=== PATIENT | female | born 1950 | race Caucasian/White ===

== ENCOUNTER 2019-05-07 12:44 | Inpatient (IN) | payer MEDICARE, MEDICAID ==
[~2019-05-07] VITALS: Ht 152.4 cm; Wt 89.8 kg
[2019-05-07] MEDS ORDERED: ALLOPURINOL300 MG PO (14:43)
[2019-05-07] MEDS ORDERED: ANUSOL HC30 GM R (14:44)
[2019-05-07] MEDS ORDERED: ELIQUIS5 M1 PO (14:45)
[2019-05-07] MEDS ORDERED: AZELASTINE137 MCG/0. NAS (14:46)
[2019-05-07] MEDS ORDERED: DEPAKOTE500 MG PO (14:47)
[2019-05-07] MEDS ORDERED: CLARITIN10 MG PO (14:50)
[2019-05-07] MEDS ORDERED: DEPAKOTE250 MG PO (14:51)
[2019-05-07] MEDS ORDERED: ZETIA10 MG PO (14:53)
[2019-05-07] MEDS ORDERED: DILTIAZEM 24HR300 MG PO (14:53)
[2019-05-07] MEDS ORDERED: FENOFIBRATE145 M1 PO (14:54)
[2019-05-07] MEDS ORDERED: FLONASE ALLERG9.9 ML NAS (14:54)
[2019-05-07] MEDS ORDERED: IMODIUM A-D2 M2 PO (15:03)
[2019-05-07] MEDS ORDERED: ATROVENT HFA12.9 GM INH (15:04)
[2019-05-07] MEDS ORDERED: IRON325 M1 PO (15:05)
[2019-05-07] MEDS ORDERED: KLONOPIN1 M1 PO (15:06)
[2019-05-07] MEDS ORDERED: SYNTHROID137 MCG PO (15:07)
[2019-05-07] MEDS ORDERED: LISINOPRIL20 MG PO (15:08)
[2019-05-07] MEDS ORDERED: MONTELUKAST SOD10 MG PO (15:08)
[2019-05-07] MEDS ORDERED: OMEPRAZOLE40 MG PO (15:09)
[2019-05-07] MEDS ORDERED: POTASSIUM CHLO10 ME5 PO (15:11)
[2019-05-07] MEDS ORDERED: PROZAC20 MG PO (15:12)
[2019-05-07] MEDS ORDERED: RISPERDAL0.5 MG PO (15:13)
[2019-05-07] MEDS ORDERED: ROBITUSSIN5 ML PO (15:14)
[2019-05-07] MEDS ORDERED: REQUIP0.5 MG PO (15:15)
[2019-05-07] MEDS ORDERED: ONCE DAILY1 EACH PO (15:16)
[2019-05-07] MEDS ORDERED: TRAZODONE50 MG PO (15:17)
[2019-05-07] MEDS ORDERED: VITAMIN D35000 UNIT PO (15:18)
[2019-05-07] MEDS ORDERED: TYLENOL325 M1 PO (15:20)
[2019-05-07] MEDS ORDERED: XYLOCAINE 1% PO (15:22)
[2019-05-07] MEDS ORDERED: ZEASORB POWDER71 GM T (15:23)
[2019-05-07] MEDS ORDERED: BREO ELLIPTA 21 EACH INH (15:48)
--- NOTE | 2019-05-07 16:45 | NUR ---
ELISE MARIO a 68 year old F admitted via stretcher from [facility] as a voluntary admission. Arrived on unit at 1645. ALLERGIES: KEFLEX, DOXYCYCLINE. Vital signs are: [id number] 127/68. 97% ROOM AIR The client signed the following forms with stated understanding: Authorization For The Release of Medical Information, Clothing List, Consent to Voluntary Admission and Hospitalization, Consent and Release Forms/Receipt of Rights, Acknowledgement of Advance Directive Information, Behavioral Health Consent Form, and Informed Consent of Medications. Admitted under the services of MELVA Ramirez MD. A search was conducted and hazardous articles were removed. Client was oriented to the unit. AB GORDON
[2019-05-07 17:01] VITALS: BP 127/68
--- NOTE | 2019-05-07 17:04 | NUR ---
NOTIFIED OF CONSULT FOR MEDICAL MANAGEMENT.
[2019-05-07 17:13] LABS: BILIRUBIN NEGATIVE (NEGATIVE); BLOOD TRACE-INTACT (NEGATIVE); CLARITY CLOUDY (CLEAR); COLOR YELLOW (YELLOW); GLUCOSE NEGATIVE (NEGATIVE); KETONE TRACE (NEGATIVE); LEUKO ESTERASE 3+ (NEGATIVE); NITRITE POSITIVE (NEGATIVE); PH 7.5 (5.0-9.0); SPECIFIC GRAVITY 1.015 (1.005-1.030)
[2019-05-07 17:29] LABS: BACTERIA 2+; EPITHELIAL CELLS 0-2; RBC 0-2 rbc/hpf (0-2); WBC 51-100 wbc/hpf (0-5)
--- NOTE | 2019-05-07 18:23 | NUR ---
PT IS ALERT AND ORIENTED X4. MEMORY APPEARS TO BE INTACT. MOOD APPEARS DEPRESSED WITH ANXIOUS OVERTONES. PT REPORTS FEELING OVERWHELMINGLY DEPRESSED AND ANXIOUS AND "NOT WELL MENTALLY" LATELY SINCE HER SON HAS BEEN INCARCERATED D/T A "DOUBLE MURDER". AFFECT IS BROAD RANGE. PT STATES "SOMETIMES I GET LOUD". PT DENIES SI/HI, INTENT OR PLAN. PT ADMITS TO 2 PREVIOUS SUICIDE ATTEMPTS IN THE BUT STATES "I DON'T WANT TO BE NOW. I JUST COULD BE MORE SATISFIED WITH MY LIFE IF I COULD GET MY SON LESS TIME IN [facility]". PT DENIES HALLUCINATIONS, NO RESPONSE TO INTERNAL STIMULI NOTED. PT APPEARS PARANOID REGARDING NURSING FACILITY. NO DISTRESS NOTED. PT CALM AND COOPERATIVE WITH ADMISSION ASSESSMENTS. SKIN INTACT, BRUISE NOTED TO LEFT HIP. PT REPORTS MULTIPLE FALLS AT [facility]. GAIT STEADY AT THIS TIME. PT SCORES FALL RISK, PT EDUCATION PROVIDED REGARDING FALL RISK PRECAUTIONS. FALLING STAR PROTOCOL INITIATED. PT VERBALIZED UNDERSTANDING AND AGREEMENT. ORIENTED TO ROOM AND CALL MADSEN.
[2019-05-07 19:43] LABS: BASO % 0.4 % (0.0-1.0); EOS % 0.4 % (1.0-4.0); HEMATOCRIT 37.5 % (37.0-47.0); HEMOGLOBIN 12.1 g/dl (12.0-16.0); LYMPH # 1.1 10*3/uL (1.3-4.4); MEAN CELL VOLUME 84.1 fl (81.0-99.0); MEAN CORPUSCULAR HGB 27.1 pg (27.0-31.0); MEAN CORPUSCULAR HGB CONC 32.3 g/dl (33.0-37.0); MEAN PLATELET VOLUME 10.1 fl (9.6-12.3); MONO # 0.9 10*3/uL (0.1-1.0); MONO % 9.1 % (3.0-9.0); NEUT # 7.9 10*3/uL (2.3-7.9); NEUT % 76.3 % (47.0-73.0); PLATELET COUNT AUTOMATED 174 10*3/uL (130-400); RED BLOOD COUNT 4.46 10*6/uL (4.10-5.10); RED CELL DISTRI WIDTH 16.2 % (0-14.5); WHITE BLOOD COUNT 10.3 10*3/uL (4.8-10.8)
[2019-05-07 20:00] LABS: ALBUMIN 2.8 gm/dl (3.1-4.5); CREATININE 1.23 mg/dL (0.55-1.02); POTASSIUM 4.3 mmol/L (3.5-5.1); TOTAL PROTEIN 6.9 gm/dL (6.4-8.2)
[2019-05-07 20:08] LABS: THYROID STIM HORMONE (HS) 2.54 uIU/ml (0.358-4.75)
[2019-05-07 20:12] VITALS: BP 132/62
--- NOTE | 2019-05-08 02:38 | NUR ---
24 HR chart check completed.
--- NOTE | 2019-05-08 02:45 | NUR ---
Called and notified Dr. Kay regarding Urine results. No new orders were received at this time.
--- NOTE | 2019-05-08 05:26 | NUR ---
Patient slept approx. 5 hours throughout shift with multiple awakenings. Q 15 minute safety checks continued and maintained.
[2019-05-08 07:23] LABS: CHLORIDE 104 mmol/L (98-107); SODIUM 137 mmol/L (136-145)
[2019-05-08 07:33] LABS: ALBUMIN 2.7 gm/dl (3.1-4.5); ALKALINE PHOSPHATASE 49 U/L (45-117); BUN 19 mg/dl (7-24); CHOLESTEROL 138 mg/dL (<200); CREATININE 0.77 mg/dL (0.55-1.02); HDL CHOLESTEROL 46 mg/dl (40-60); LDL CHOLESTEROL 78 mg/dL (9-159); SGOT/AST 10 IU/L (3-35); SGPT/ALT 11 U/L (12-78); TOTAL PROTEIN 6.6 gm/dL (6.4-8.2); TRIGLYCERIDES 70 mg/dl (<150); VALPROIC ACID (DEPAKENE) 33.9 ug/ml (50-100); VLDL CHOLESTEROL 14 mg/dL (6-40)
--- NOTE | 2019-05-08 07:58 | NUR ---
DR. HENNING ON FLOOR TO ASSESS PATIENT. UPDATE PROVIDED. INFORMED OF IV FLUIDS COMPLETED. STATED THAT THE IV COULD BE REMOVED.
[2019-05-08 08:00] VITALS: BP 120/69
--- NOTE | 2019-05-08 08:30 | NUR ---
Treatment Plan meeting with Dr. Ramires, RN, AT, SW and Linux Devops Engineer. Plan for discharge next week. Pt. came to [facility] from [facility]. Will reach out to facility to discuss discharge Planning.
--- NOTE | 2019-05-08 09:02 | NUR ---
PHYSICAL THERAPY Nursing screen received and chart reviewed. PT orders received. Thank you Fernanda Desai, SPT Iraida Ward,PT,DPT.
--- NOTE | 2019-05-08 10:17 | NUR ---
#22 GAUGE IV TO LEFT HAND AND DRESSING, DISCONTINUED AT THIS TIME. CATHETER TIP INTACT. PRESSURE DRESSING APPLIED. PATIENT TOLERATED VERY WELL.
--- NOTE | 2019-05-08 11:10 | NUR ---
Nursing screen received and occupational therapy referral received. Thank you. Marcy Haynes OTR/L
--- NOTE | 2019-05-08 12:30 | NUR ---
Spoke with Pratibha Cordova with [facility]. Pt. is LTC at facility and will return at discharge. Clinical Updates faxed to facility.
--- NOTE | 2019-05-08 12:46 | NUR ---
Shift chart check completed.
--- NOTE | 2019-05-08 13:52 | NUR ---
Patient not available for occupational therapy evaluation as she was in group session. Marcy Haynes OTR/l
--- NOTE | 2019-05-08 13:53 | NUR ---
PHYSICAL THERAPY Physical therapy evaluation attempted. Patient in group activities at this time. Will try PT evaluation again at a later time/date. Thank you. Iraida Ward,PT,DPT.
--- NOTE | 2019-05-08 15:35 | NUR ---
PM GROUP PT ATTENDED AFTERNOON GROUP THERAPY AND PARTICIPATED BY SOCIALIZING AND LISTENING TO THE MUSIC. PT WAS TALKATIVE BUT EXHIBITED NO SIGNS OF ANXIETY OR PARANOIA.
--- NOTE | 2019-05-08 15:39 | NUR ---
P- DEPRESSED MOOD. I- 1:1 INTERACTION WITH EMOTIONAL SUPPORT AND VENTILATION OF FEELINGS PROVIDED. PROVIDE MEDICATIONS ON TIME WITH EDUCATION ON EACH. ASSESS MOOD, ORIENTATION, HALLUCINATIONS, DELUSIONS, SI/HI OR PAIN. ENCOURAGE TO ATTEND/PARTICIPATE IN GROUP THERAPIES. R- ALERT AND ORIENTED X4. DENIES HALLUCINATIONS, DELUSIONS, SI/HI OR PAIN. NO S/S OF INTERACTING WITH INTERNAL STIMULI. NO DELUSIONAL THOUGHT PROCESS NOTED. NO S/S OF DISTRESS NOTED. RESPS EVEN AND UNLABORED ON ROOM AIR. GAIT STEADY WHILE AMBULATING. MEDICATION COMPLIANT. INTERACTIVE WITH PEERS AND STAFF. ATTEND/PARTICIPATE IN GROUP THERAPY. PATIENT DESCRIBES MOOD DEPRESSED. PATIENT EXPRESSED DURING 1:1 INTERACTION THAT HER SON WAS PUT IN LONG TERM AND SHE BELIEVES THAT IT IS ALL FOR THE WRONG REASONS, SHE IS NOT HAPPY WITH THE SHELTER THAT SHE IS IN, AND THE HEALTH ISSUES THAT SHE HAS. PATIENT STATED THAT ALL THESE FACTORS HAS MADE HER DEPRESSED. DENIES ANY THOUGHTS OF SELF HARM OR SI. P- 1:1 INTERACTION WITH EMOTIONAL SUPPORT AND VENTILATION OF FEELINGS PROVIDED WHEN NECESSARY. ENCOURAGE TO ATTEND/PARTICIPATE IN GROUP THERAPIES. PROVIDE MEDICATIONS ON TIME WITH EDUCATION ON EACH. ASSESS MOOD, ORIENTATION, SI/HI, HALLUCINATIONS, DELUSIONS OR PAIN EVERY SHIFT. FALLING STAR PROGRAM IN PLACE. Q15 MINUTE CHECKS MAINTAINED FOR SAFETY.
[2019-05-08 20:00] VITALS: BP 133/88
--- NOTE | 2019-05-08 22:19 | NUR ---
Patient alert and oriented x4. Gait steady. Denies SI/HI. No signs of any hallucinations noted at this time. Patient compliant with medications without any difficulty. Provided 1:1 for emotional support. Plan to continue to encourage medication compliance and to continue to provide 1:1 for emotional support. Q 15 minute safety checks continued and maintained. See [facility] flowsheet for further documentation.
--- NOTE | 2019-05-09 00:29 | NUR ---
24 HR chart check completed.
--- NOTE | 2019-05-09 05:29 | NUR ---
Patient slept approx. 4 hours throughout shift with multiple awakenings. Q 15 minute safety checks continued and maintained.
--- NOTE | 2019-05-09 08:02 | NUR ---
PT AWAKE AND ALERT. RESPS EASY AND EVEN ON ROOM AIR. FEEDING SELF BREAKFAST IN DINING ROOM WITH PEERS. NO DISTRESS NOTED. KAYLA MACHINE HOSTLER ON UNIT TO SEE PT AT THIS TIME FOR . UPDATE GIVEN.
[2019-05-09 08:14] VITALS: BP 115/71
--- NOTE | 2019-05-09 09:30 | NUR ---
ON UNIT TO SEE PT AT THIS TIME.
--- NOTE | 2019-05-09 11:55 | NUR ---
AM/EXERCISE/BINGO PT ATTENDED AND PARTICIPATED IN ALL ACTIVITY'S. PT STATES "I DONT PLAY GAMES BUT I WILL TO PASS SOME TIME" PT DID NOT EXPRESS ANY ANXIETY OR PARANOIA AT THIS TIME. PT WILL CONTINUE TO BE ENCOURAGED TO ATTEND AND PARTICIPATE IN FUTURE GROUP SESSIONS TO BEST OF ABILITY. THIS STAFF WILL COMPLETE PT ACTIVITY ASSESSMENT THIS AFTERNOON.
--- NOTE | 2019-05-09 15:16 | NUR ---
P- MOOD APPEARS STABLE, APPROPRIATE AFFECT. PT DENIES FEELING SAD, DEPRESSED OR ANXIOUS. PT REPORTS SHE IS ALREADY FEELING BETTER THAN WHEN ADMITTED TO [facility], HOWEVER, PT STATES "I DON'T KNOW HOW LONG THESE GOOD FEELINGS ARE GOING TO LAST SINCE I'M SURE I'LL HAVE TO GO BACK TO THAT HELL HOLE OF A PENITENTIARY, BUT I HAVE PEOPLE WORKING ON THAT FOR ME AND I'M THANKFUL FOR THAT". I- ORIENTATION, MOOD AND BEHAVIOR ASSESSED. ASSESSED PT FOR SI/HI, INTENT OR PLAN. ASSESSED PT FOR S/S HALLUCINATIONS, PARANOIA AND/OR DELUSIONS. MEDICATIONS ADMINISTERED PER PHYSICIAN'S ORDERS. MED EDUCATION PROVIDED. ASSISTANCE WITH ADL CARE PROVIDED NEEDED. ENCOURAGED PT TO ATTEND AND PARTICIPATE IN ROSAD[employer] MILIEU GROUPS AND ACTIVITIES. R- PT IS ALERT AND ORIENTED X4. MEMORY APPEARS TO BE INTACT. RESPS EASY AND EVEN ON ROOM AIR. MOOD APPEARS STABLE WITH APPROPRIATE AFFECT. PT DENIES FEELING SAD OR DEPRESSED, STATES SHE IS FEELING MUCH BETTER THAN WHEN ORIGINALLY ADMITTED, HOWEVER, PT STATES "I DON'T KNOW HOW LONG THESE GOOD FEELINGS ARE GOING TO LAST SINCE I'M SURE I'LL HAVE TO GO BACK TO THAT HELL HOLE OF A PENITENTIARY, BUT I HAVE PEOPLE WORKING ON THAT FOR ME AND I'M THANKFUL FOR THAT". PT DENIES SI/HI, INTENT OR PLAN. PT STATES "I TRIED THAT YEARS AGO, BUT I'LL NEVER DO IT AGAIN. I DON'T WANT TO BE ". PT DENIES HALLUCINATIONS, NO RESPONSE TO INTERNAL STIMULI NOTED. PT IS MEDICATION COMPLIANT WITHOUT DIFFICULTY. RECEPTIVE TO MED EDUCATION, ABLE TO VOICE UNDERSTANDING OF MEDICATIONS AND THEIR INTENDED USES. INTERACTS APPROPRIATELY WITH STAFF AND PEERS. ATTENDS AND PARTICIPATES IN GROUPS AND ACTIVITIES. INDEPENDENT WITH ADL CARE, SHOWERED THIS AFTERNOON. FEEDS SELF, DISPLAYS GOOD APPETITE WITH ADEQUATE FLUID INTAKE. NO DISTRESS NOTED. P- PLAN TO CONTINUE CURRENT TREATMENT; CONTINUE TO MONITOR MOOD AND BEHAVIORS. PROVIDE APPROPRIATE REORIENTATION, REDIRECTION AND 1:1 NEEDED. CONTINUE TO ENCOURAGE MEDICATION COMPLIANCE WELL GROUP ATTENDANCE AND PARTICIPATION.
--- NOTE | 2019-05-09 16:00 | NUR ---
PM/REMINISCE PT ATTENDED AND PARTICIPATED DURING GROUP. PT PLEASANT AND ON TASK WITH NO PARANOIA OR ANXIETY EXPRESSED. PT WILL CONTINUE TO ATTEND AND PARTICIPATE IN FUTURE GROUP SESSIONS.
--- NOTE | 2019-05-09 16:28 | NUR ---
SHIFT CHART CHECK COMPLETED.
[2019-05-09 19:57] VITALS: BP 120/72
--- NOTE | 2019-05-09 22:43 | NUR ---
PT REQUESTING AND RECEIVED AT THIS TIME TYLENOL. PT C/O GENERALIZED PAIN RATING A 5. TYLENOL 650MG PO GIVEN PER PRN ORDER AT THIS TIME. WILL MONITOR FOR EFFECTIVENESS.
--- NOTE | 2019-05-09 23:07 | NUR ---
NO ADVERSE MOODS OR BEHAVIORS NOTED THIS SHIFT. ALERT AND ORIENTED X4. PT STATES "I AM DOING SURPRISINGLY REALLY GOOD TODAY". MEDICATION COMPLIANT WITH EDUCATION PROVIDED ON EACH. PT STATED "IT IS TIME I REALLY LEARN THESE MEDICATIONS AGAIN, THEY KEEP CHANGING THEM AND IT IS HARD TO KEEP UP". PT PLEASANT AND INTERACTING WITH PEERS/STAFF. ATE HS SNACK. DENIES HALLUCINATIONS, SI/HI OR PAIN. NO S/S OF INTERACTING WITH INTERNAL STIMULI. NO DELUSIONAL THOUGHT PROCESS NOTED. NO S/S OF DISTRESS NOTED. RESPS EVEN AND UNLABORED ON ROOM AIR. GAIT STEADY WHILE AMBULATING. ABLE TO MAKE NEEDS KNOWN. FALLING STAR PROGRAM IN PLACE. Q15 MINUTE CHECKS MAINTAINED FOR SAFETY.
--- NOTE | 2019-05-09 23:46 | NUR ---
PRN TYLENOL EFFECTIVE. PT LAYING IN BED WITH EYES CLOSED, RESPS EVEN AND UNLABORED ON ROOM AIR. NO FURTHER COMPLAINTS AT THIS TIME.
--- NOTE | 2019-05-09 23:46 | NUR ---
24 HR chart check completed.
--- NOTE | 2019-05-10 05:55 | NUR ---
PATIENT MONITORED ON Q15 MINUTE SAFETY CHECKS THROUGHOUT THE NIGHT. PT NOTED TO HAVE SLEPT APPROXIMATELY 6 HOURS UNINTERRUPTED.
[2019-05-10 07:52] VITALS: BP 137/72
--- NOTE | 2019-05-10 08:01 | NUR ---
PT AWAKE AND ALERT. RESPS EASY AND EVEN ON ROOM AIR. FEEDING SELF BREAKFAST IN DINING ROOM WITH PEERS AT THIS TIME. NO DISTRESS NOTED. KAYLA MOBILE UI/UX DESIGNER ON UNIT TO SEE PT AT THIS TIME, UPDATE GIVEN.
--- NOTE | 2019-05-10 09:29 | NUR ---
PRN TYLENOL 650MG PO GIVEN AT THIS TIME PER PT REQUEST FOR C/O PAIN TO NECK, BILATERAL SHOULDERS AND MID BACK. PT RATES PAIN AN 8/10 ON PAIN SCALE. WILL MONITOR FOR EFFECTIVENESS OF MEDICATION INTERVENTION.
--- NOTE | 2019-05-10 10:30 | NUR ---
PT STATES TYLENOL IS INEFFECTIVE FOR PAIN RELIEF. PT STATES "I USED TO BE ON STRONG PAIN KILLERS BUT THEY WON'T GIVE ME THEM ANYMORE BECAUSE THEY'RE CRACKING DOWN ON THEM. I DON'T NEED SOMETHING STRONG BUT TYLENOL NEVER WORKS". ON UNIT AND AWARE OF PT COMPLAINTS.
--- NOTE | 2019-05-10 10:30 | NUR ---
ON UNIT TO SEE PT AT THIS TIME. MADE AWARE PT C/O PAIN TO NECK, SHOULDERS AND BACK UNRELIEVED BY ADMINISTRATION OF PRN TYLENOL.
--- NOTE | 2019-05-10 18:33 | NUR ---
P- INTRUSIVE INTO CARE OF PEERS. PREOCCUPIED AT TIMES WITH TALKING ABOUT GETTING OUT OF THE [facility] AND INTO AN APARTMENT, PT STATES "THEY'VE TOLD ME I'LL PROBABLY GET DECLINED FOR AN APARTMENT THOUGH BECAUSE OF MY PSYCH ISSUES". I- ORIENTATION, MOOD AND BEHAVIORS ASSESSED. ASSESSED PT FOR SI/HI, INTENT OR PLAN. ASSESSED PT FOR S/S HALLUCINATIONS, PARANOIA AND/OR DELUSIONS. MEDICATIONS ADMINISTERED PER PHYSICIAN'S ORDERS. ASSISTANCE WITH ADL CARE PROVIDED NEEDED. ENCOURAGED PT TO ATTEND AND PARTICIPATE IN ROS[facility] MILIE[facility] GROUPS AND ACTIVITIES. R- PT IS ALERT AND ORIENTED X4. MEMORY APPEARS TO BE INTACT. RESPS EASY AND EVEN ON ROOM AIR. MOOD APPEARS STABLE WITH APPROPRIATE AFFECT. SPEECH IS WNL AND COHERENT, ABLE TO MAKE NEEDS KNOWN WITHOUT DIFFICULTY. PT DENIES SI/HI, INTENT OR PLAN. PT DENIES HALLUCINATIONS, NO RESPONSE TO INTERNAL STIMULI NOTED. NO PARANOIA OR DELUSIONS NOTED. PT PREOCCUPIED AT TIMES WITH TALKING ABOUT GETTING OUT OF THE [facility] AND INTO AN APARTMENT. INTRUSIVE AT TIMES INTO THE CARE OF PEERS REQUIRING REDIRECTION. PT IS MEDICATION COMPLIANT WITHOUT DIFFICULTY. EXPRESSES UNDERSTANDING OF MEDICATIONS. NO AGGRESSIVE BEHAVIORS DISPLAYED. NO DISTRESS NOTED. P- PLAN TO CONTINUE CURRENT TREATMENT, CONTINUE TO MONITOR MOOD AND BEHAVIORS, PROVIDE APPROPRIATE REORIENTATION, REDIRECTION AND 1:1 NEEDED. CONTINUE TO ENCOURAGE MEDICATION COMPLIANCE WELL GROUP ATTENDANCE AND PARTICIPATION.
--- NOTE | 2019-05-10 18:56 | NUR ---
SHIFT CHART CHECK COMPLETED.
[2019-05-10 19:54] VITALS: BP 120/62
--- NOTE | 2019-05-10 21:00 | NUR ---
PT PLEASANT COOPERATIVE THIS EVENING, REVIEWED MEDICATIONS WITH EDUCATION ON PURPOSE FOR EACH ONE. PT ACKNOWLEDGED EACH WITH UNDERSTANDING OF WHAT THEY ARE FOR. PT EXPRESSED CONCERN DUE TO RISPERDAL CAUSED EXCESSIVE WEIGHT GAIN IN THE PAST, STATING "I AM BIG ENOUGH IT IS I DON'T NEED ANY HELP" REPORTED IT WAS 60 LBS IN 1 MONTH. AT THIS TIME INFORMED PT THAT DOCTOR WOULD BE INFORMED OF HER CONCERNS IN AM. NO SI/HI OR DELUSIONS NOTED ON ASSESSMENTS, CONTINUE TO MONITOR 15 MIN CHECKS
--- NOTE | 2019-05-11 06:36 | NUR ---
TYLENOL GIVEN FOR C/O 06/11 HEADACHE
[2019-05-11 07:53] VITALS: BP 113/68
--- NOTE | 2019-05-11 08:30 | NUR ---
Treatment Plan meeting with Dr. Ramires, RN, AT, SW and Front Edger. Plan for discharge Saturday. Pt. will return to the [facility].
--- NOTE | 2019-05-11 10:42 | NUR ---
Spoke with Pratibha Cordova from the [facility]. Advised of Plans to discharge Saturday. Clinical Updates faxed to facility.
--- NOTE | 2019-05-11 10:46 | NUR ---
DR HENNING ON THE UNIT TO ASSESS PT. UPDATE PROVIDED.
--- NOTE | 2019-05-11 12:04 | NUR ---
AM GROUP/EXERCISE AND BRAIN GAMES PT WAS PRESENT FOR MORNING GROUP THERAPY AND PARTICIPATED IN ALL ACTIVITIES. PT EXPRESSED NO PARANOIA NOR EXHIBITED ANY ANXIETY WHILE IN GROUP
--- NOTE | 2019-05-11 14:10 | NUR ---
PHYSICAL THERAPY Physical therapy evaluation attempted. Patient in group session at this time. Will try PT evaluation again at a later time/date. Thank you. Iraida Ward,PT,DPT.
--- NOTE | 2019-05-11 14:10 | NUR ---
Patient not available for Occupational Therapy evaluation as she is in group therapy session. Marcy Haynes OTR/L
--- NOTE | 2019-05-11 15:37 | NUR ---
PM GROUP/LEISURE INTERESTS PT ATTENDED AFTERNOON GROUP THERAPY AND PARTICIPATED BY PLAYING SOLITAIRE AND WORKING ON A [employer]. PT EXPRESSED NO PARANOID IDEATIONS WHILE IN GROUP.
--- NOTE | 2019-05-11 15:56 | NUR ---
Left a message for GLASS CHECKER at [facility] requesting a return call to discuss the status of pt's request to relocate to the [facility]. Await return call.
--- NOTE | 2019-05-11 16:01 | NUR ---
PT REQUEST AND RECEIVED AT THIS TIME PRN TYLENOL PO. PT C/O LEFT ANKLE PAIN. SKIN INTACT, NO ERYTHMIA/DISCOLORATION OR EDEMA TO SITE. PT WALKING ON ANKLE WITH NO DIFFICULTY. TYLENOL PO GIVEN AT THIS TIME PER PRN ORDERS. WILL CONTINUE TO MONITOR FOR EFFECTIVENESS.
--- NOTE | 2019-05-11 17:01 | NUR ---
PRN TYLENOL EFFECTIVE. NO FURTHER VOICED COMPLAINTS AT THIS TIME.
--- NOTE | 2019-05-11 17:15 | NUR ---
PT CURRENTLY EATING DINNER WITH PEERS. MOOD PLEASANT AND INTERACTIVE WITH PEERS/STAFF. ALERT AND ORIENTED X3. DENIES HALLUCINATIONS. NO S/S OF INTERACTING WITH INTERNAL STIMULI. NO DELUSIONAL THOUGHT PROCESS NOTED. NO S/S OF DISTRESS NOTED. RESPS EVEN AND UNLABORED ON ROOM AIR. MAKES NEEDS KNOWN. GAIT STEADY WHILE AMBULATING. CONTINENT OF BOWEL AND BALDDER. FALLING STAR PROGRAM IN PLACE. Q15 MINUTE CHECKS MAINTAINED FOR SAFETY.
--- NOTE | 2019-05-11 17:48 | NUR ---
Shift chart check completed.
--- NOTE | 2019-05-11 18:48 | NUR ---
DR. LOPEZ NOTIFIED OF PT COMPLAINING LEFT ANKLE PAIN AND PT STATING THAT THE TYLENOL IS NO LONGER EFFECTIVE. PT LIMPING, NO DISCOLORATION/ERYTHMIA OR EDEMA NOTED TO SITE. DR. LOPEZ STATED THAT WE WILL ORDER AN XRAY.
--- NOTE | 2019-05-11 19:10 | NUR ---
RADIOLOGY ON FLOOR WITH PORTABLE XRAY. PT TOLERATED WELL.
[2019-05-11 19:45] VITALS: BP 116/61
--- NOTE | 2019-05-11 21:42 | NUR ---
NO ADVERSE MOODS OR BEHAVIORS NOTED THIS SHIFT. ALERT AND ORIENTED X3. MOOD PLEASANT. INTERACTIVE WITH PEERS. ATE HS SNACK. DENIES HALLUCINATIONS, SI/HI OR PAIN. NO S/S OF INTERACTING WITH INTERNAL STIMULI. NO DELUSIONAL THOUGHT PROCESS NOTED. NO S/S OF DISTRESS NOTED. RESPS EVEN AND UNLABORED ON ROOM AIR. MEDICATION COMPLIANT WITH EDUCATION PROVIDED ON EACH. GAIT STEADY WHILE AMBULATING. FALLING STAR PROGRAM IN PLACE. Q15 MINUTE CHECKS MAINTAINED FOR SAFETY.
--- NOTE | 2019-05-11 21:52 | NUR ---
24 HR chart check completed.
--- NOTE | 2019-05-12 00:51 | NUR ---
DR. MCKEON NOTIFIED OF XRAY RESULTS ARE IN FOR REVIEW. NO NEW ORDERS AT THIS TIME.
--- NOTE | 2019-05-12 03:35 | NUR ---
PT C/O NECK PAIN RATING 6 OUT OF 10. NO DISCOLORATION/ERYTMIA OR EDEMA NOTED TO AREA. PT SITTING IN BED WITH HEAD ALL THE WAY UP, SUGGESTED PUTTING THE HEAD OF THE BED DOWN SOME DUE TO NECK BEING IN A FORWARD TILT POSITION; OFFERED A DIFFERENT PILLOW; PT REFUSED ALL NONPHARMALOGICAL SUGGESTIONS. PT REQUESTING AND RECEIVED AT THIS TIME PRN PO TYLENOL. WILL CONTINUE TO MONITOR FOR EFFECTIVENESS.
--- NOTE | 2019-05-12 04:30 | NUR ---
PATIENT RESTING WITH EYES CLOSED. PRN TYLENOL EFFECTIVE, NO FURTHER COMPLAINTS AT THIS TIME. NO S/S OF DISTRESS NOTED. RESPS EVEN AND UNLABORED ON ROOM AIR.
--- NOTE | 2019-05-12 05:35 | NUR ---
PATIENT MONITORED ON Q15 MINUTE SAFETY CHECKS THROUGHOUT THE NIGHT. PATIENT NOTED TO HAVE SLEPT APPROXIMATELY 3.5 HOURS.
--- NOTE | 2019-05-12 08:30 | NUR ---
Treatment Plan meeting with Dr. Ramires, RN, AT, SW and Pegger. Plan for discharge Sat/. Pt. will return to the [facility].
[2019-05-12 08:31] VITALS: BP 131/79
--- NOTE | 2019-05-12 10:35 | NUR ---
DR. HENNING ON UNIT TO ASSESS PT, UPDATE PROVIDED.
--- NOTE | 2019-05-12 11:53 | NUR ---
AM GROUP PT ATTENDED AND PARTICIPATED IN ALL GROUP ACTIVITIES. PT WAS TALKATIVE BUT ON TASK. PT EXPRESSED NO PARANOIA OR ANXIETY WHILE IN GROUP
--- NOTE | 2019-05-12 14:16 | NUR ---
Met with pt this AM. Pt was pleasant and inquiring about discharge plan. Informed pt that this video games storywriter had not yet heard from the workers' compensation commissioner at the [facility] in regards to referrals to NFs in [facility]. Later in the AM, received a call from blanche Almaguer at the [facility]. Rosina reported that she has made 6 referrals to [place] NFs. All have declined pt.
--- NOTE | 2019-05-12 14:40 | NUR ---
PHYSICAL THERAPY Patient in group session at this time. Will attempt PT evaluation at a later date. Thank you. Iraida Ward,PT,DPT.
--- NOTE | 2019-05-12 14:40 | NUR ---
Patient not available for Occupational Therapy as she is in group session Marcy Haynes OTR/Tra
--- NOTE | 2019-05-12 14:42 | NUR ---
P: PT MOOD IS ANXIOUS AT TIMES. PT PREOCCUPIED WITH MEDICATIONS. I: PROVIDED MED EDUCATION, PROVIDED EMOTIONAL SUPPORT AND 1:1 FOR PT TO VOICE FEELINGS, ENCOURAGED GROUP PARTICIPATION AND OFFERED DIVERSIONAL ACTIVITES. R: PT CONTINUES WITH INTERMITTENT ANXIETY, ABLE TO BE REDIRECTED. PT MED COMPLIANT WITHOUT DIFFICULTY, MED EDUCATION PROVIDED. PT ALERT TO PERSON, PLACE AND TIME. NO HALLUCINATIONS OR DELUSIONS NOTED. PT DENIES ANY SUICIDAL THOUGHTS. PT AMBULATORY THROUGHTOUT UNIT, GAIT STEADY. PT CONTINENT OF BOWEL AND BLADDER. P: MONITOR PT BEHAVIORS ON Q15 MIN SAFETY CHECKS, ENCOURAGE MED COMPLIANCE AND PROVIDE MED EDUCATION, ENCOURAGE GROUP PARTICIPATION AND SOCIALIZATION, PROVIDE EMOTIONAL SUPPORT AND 1:1 FOR PT TO VOICE FEELINGS
--- NOTE | 2019-05-12 15:30 | NUR ---
PM GROUP/ART AND MUSIC PT ATTENDED AFTERNOON GROUP THERAPY AND PARTICIPATED BY WORKING ON A [employer]. PT WAS TALKATIVE BUT ON TASK. PT EXHIBITED NO ANXIETY NOR EXPRESSED ANY PARANOID IDEATIONS DURING GROUP
[2019-05-12 19:20] VITALS: BP 140/77
--- NOTE | 2019-05-12 20:38 | NUR ---
EVENING/RELAXTION/REMINISCE PT ATTENDED AN DPARTICIPATED DURING GROUP. PT PLEASANT AND ON TASK WITH NO ANXIETY OR PARANOIA EXPRESSED. PT WILL CONTINUE TO ATTEND AN DPARTICIPATE IN FUTURE RGOUP SESSIONS.
--- NOTE | 2019-05-12 21:00 | NUR ---
INTERACTIVE WITH PEERS. LAUGHING AND JOKING. REVIEWED PM MEDICATIONS. STATES SHE HAD A GOOD DAY.NO PARANOIA NOTED
--- NOTE | 2019-05-13 00:47 | NUR ---
APPEARS TYLENOL EFFECTIVE FOR NECK AND HEAD PAIN
--- NOTE | 2019-05-13 04:14 | NUR ---
24 HR chart check completed.
--- NOTE | 2019-05-13 05:54 | NUR ---
SLEPT WELL PAST 2300PM. MOVED SELF IN BED
[2019-05-13 08:14] VITALS: BP 112/65
--- NOTE | 2019-05-13 08:30 | NUR ---
Treatment Plan meeting with Dr. Ramires, RN, AT, and Network Specialist. Plan for discharge . Pt. will return to [facility].
--- NOTE | 2019-05-13 09:08 | NUR ---
PHYSICAL THERAPY Physical therapy evaluation completed. Patient independent in dining area and hallways with ambulation and transfers. No PT needs at this time. Return to [facility] at discharge. Thank you, Fernanda Desai, RYDER Ward,PT,DPT
--- NOTE | 2019-05-13 09:08 | NUR ---
Occupational Therapy evaluation completed on 3 with full eval to follow. PRecautions include use of cane prior to admission, 3N unit precautions, low complexity level 19000 via chart review, testing and evaluation. Recommend no further OT at this time and return to [facility] upon d/c. Thank you. Marcy Haynes OTR/L
--- NOTE | 2019-05-13 11:47 | NUR ---
AM GROUP PT DID NOT ATTEND GROUP UNTIL LATE AND STATED, "I HAD SUCH A HEADACHE, I WENT TO SLEEP, BUT I REALLY CAN'T DO ANYTHING BECAUSE MY NECK REALLY HURTS" PT SAT AT THE BACK OF THE ROOM IN A COMFY CHAIR. PT EXPRESSED NO ANXIETY OR PARANOIA WHILE IN GROUP
--- NOTE | 2019-05-13 15:24 | NUR ---
NO ADVERSE MOODS OR BEHAVIORS NOTED. PT ALERT TO PERSON, PLACE AND TIME. PT MED COMPLIANT WITHOUT DIFFICULTY. PT MED COMPLIANT WITHOUT DIFFICULTY, MED EDUCATION PROVIDED. PT CALM, MOOD IS STABLE. PT INTERACTIVE WITH STAFF AND PEERS. NO HALLUCINATIONS OR DELUSIONS NOTED. PT DENIES ANY SUICIDAL THOUGHTS. PT AMBULATORY THROUGHOUT UNIT, GAIT STEADY. PT CONTINENT OF BOWEL AND BLADDER, EPISODES OF INCONTINENCE NOTED, CARE PROVIDED NEEDED. PLAN IS TO MONITOR PT BEHAVIORS ON Q15 MIN SAFETY CHECKS, ENCOURAGE MED COMPLIANCE AND PROVIDE MED EDUCATION, PROVIDE EMOTIONAL SUPPORT AND 1:1 FOR PT TO VOICE FEELINGS.
--- NOTE | 2019-05-13 15:34 | NUR ---
PM GROUP/SOCIALIZING PT ATTENDED AND PARTICIPATED IN AFTERNOON GROUP THERAPY. PT WAS TALKATIVE AND EXHIBITED NO ANXIETY NOR EXPRESSED ANY PARANOID IDEATIONS. PT IS LOOKING FORWARD TO BEING DISCHARGED FROM THE UNIT TOMORROW
--- NOTE | 2019-05-13 18:29 | NUR ---
PT C/O NECK PAIN, MEDICATED WITH TYLENOL 650MG PO PRN PER ORDERS. WILL CONTINUE TO MONITOR.
[2019-05-13 19:25] VITALS: BP 130/58
--- NOTE | 2019-05-13 21:29 | NUR ---
INTERACTIVE WITH PEERS. NO C/O OTHER THAN BACK PAIN. WITH ENCOURAGEMENT SHE ALLOWED ME TO APPLY ARTHRITIC CREAM. GAIT STEADY. REVIEWED ALL MEDICATIONS.
--- NOTE | 2019-05-13 22:20 | NUR ---
STATES ARTHRITIC CREAM TOO HOT. HAD MILIEU WASH OFF.
--- NOTE | 2019-05-14 00:58 | NUR ---
24 HR chart check completed.
--- NOTE | 2019-05-14 05:39 | NUR ---
TYLENOL GIVEN FOR C/O HEADACHE 06/11
--- NOTE | 2019-05-14 05:57 | NUR ---
SLEPT APPROX 5 1/
--- NOTE | 2019-05-14 08:03 | NUR ---
DR. LOPEZ NOTIFIED OF PATIENT BEING DISCHARGE, TO INFORM .
[2019-05-14 08:11] VITALS: BP 129/71
--- NOTE | 2019-05-14 08:30 | NUR ---
Treatment Plan meeting was held this a.m. with Dr. Ramires, RN, AT, SW and Lab Support Service Tech. Plan for discharge today with return to the [facility]. Transportation arranged with [facility] to transport with picker / packer time around 12:00 p.m. Discharge Paperwork Faxed to Facility.
[2019-05-14] MEDS ORDERED: CLONAZEPAM1 MG PO (09:34)
[2019-05-14] MEDS ORDERED: RISPERIDONE1 MG PO (09:35)
[2019-05-14] MEDS ORDERED: ARTHRITIS PAIN57 GM T (09:35)
[2019-05-14] MEDS ORDERED: DIVALPROEX SOD500 MG PO (09:35)
--- NOTE | 2019-05-14 11:45 | NUR ---
AM GROUP/EXERCISE PT ATTENDED MORNING GROUP THERAPY AND PARTICIPATED IN THE EXERCISES. PT EXPRESSED NO DELUSIONS OR ANXIETY WHILE IN GROUP. PT IS SET TO BE DISCHARGED FROM THE UNIT THIS AFTERNOON
--- NOTE | 2019-05-14 12:33 | NUR ---
REVIEWED DISCHARGE INSTRUCTIONS WITH PATIENT AND SIGNED. NURSE TO NURSE REPORT GIVEN TO FLOWER ALBARADO KILBOURNE.
--- NOTE | 2019-05-14 12:36 | NUR ---
PATIENT IS ALERT AND ORIENT TO PERSON,PLACE,TIME AND SITUATION; ABLE TO VOICE NEEDS. MOOD IS STABLE. DENIES ANY HALLUCINATIONS, DELUSIONS, HHI/SI OR PAIN. MEDICAITON COMPLAINT WITH EDUCATION PROVIDED. Q 15 MINUTE SAFETY CHECKS. INDEPENDENT WITH ACTIVITIES OF DAILY LIVING, CONTINENT OF BOWEL AND BLADDER. SET UP FOR MEALS, INTAKES ARE GOOD WITH ADEQUATE FLUIDS. DENIES ANY PARANOID THOUGHTS. CONTINUE TO MONITOR FOR HALLUCINATIONS/DELUSION; PROVIDE ONE ON ONE, REDIRECTION AND REORIENTATION NEEDED.
--- NOTE | 2019-05-14 13:02 | NUR ---
[facility] PRESENT, PATIENT ASSISTED TO [facility]. ALL BELONGING AND DISCHARGE INSTRUCTIONS SENT WITH PATIENT.
--- NOTE | 2019-05-14 14:06 | NUR ---
Patient discharged to [facility] today. Follow-up will be with Dr Ramires, visiting psychiatrist. While at [facility], pt's mood and behaviors improved. Pt was future-oriented as she voices a want to relocate in the [place] area to be closer to her son Gaudencio. Pt was not voicing paranoid delusions or hallucinations. Pt was appropriate with staff and peers.
== END 2019-05-14 13:02 | DRG 883 ==
LOC: 3N 12:44
PROVIDERS: ADMIT Psychiatry & Neurology Psychiatry
DX: F63.81 Intermittent explosive disorder (principal); N17.0 Acute kidney failure with tubular necrosis; E43 Unspecified severe protein-calorie malnutrition; N30.01 Acute cystitis with hematuria; G45.9 Transient cerebral ischemic attack, unspecified; F31.5 Bipolar disorder, current episode depressed, severe, with psychotic features; I48.91 Unspecified atrial fibrillation; J44.9 Chronic obstructive pulmonary disease, unspecified; J30.2 Other seasonal allergic rhinitis; E78.5 Hyperlipidemia, unspecified; I10 Essential (primary) hypertension; M1A.9XX0 Chronic gout, unspecified, without tophus (tophi); F41.9 Anxiety disorder, unspecified; E55.9 Vitamin D deficiency, unspecified; R73.9 Hyperglycemia, unspecified; Z96.653 Presence of artificial knee joint, bilateral; K21.9 Gastro-esophageal reflux disease without esophagitis; G47.00 Insomnia, unspecified; E89.0 Postprocedural hypothyroidism; F17.210 Nicotine dependence, cigarettes, uncomplicated; Z88.1 Allergy status to other antibiotic agents; Z88.8 Allergy status to other drugs, medicaments and biological substances; Z71.6 Tobacco abuse counseling; Z90.49 Acquired absence of other specified parts of digestive tract; Z90.710 Acquired absence of both cervix and uterus; Z82.3 Family history of stroke; Z79.899 Other long term (current) drug therapy; Z79.1 Long term (current) use of non-steroidal anti-inflammatories (NSAID); Z68.38 Body mass index [BMI] 38.0-38.9, adult

== ENCOUNTER 2019-07-05 06:28 | Inpatient (IN) | payer MEDICARE, MEDICAID ==
[~2019-07-05] VITALS: Ht 162.5 cm; Wt 98.0 kg
[~2019-07-05 06:28] MED LIST: ALLOPURINOL300 MG PO; ANUSOL HC30 GM R; ARTHRITIS PAIN57 GM T; ATROVENT HFA12.9 GM INH; AZELASTINE137 MCG/0. NAS; BREO ELLIPTA 21 EACH INH; CLARITIN10 MG PO; CLONAZEPAM1 MG PO; DEPAKOTE250 MG PO; DEPAKOTE500 MG PO; DILTIAZEM 24HR300 MG PO; DIVALPROEX SOD500 MG PO; ELIQUIS5 M1 PO; FENOFIBRATE145 M1 PO; FLONASE ALLERG9.9 ML NAS; IMODIUM A-D2 M2 PO; IRON325 M1 PO; KLONOPIN1 M1 PO; LISINOPRIL20 MG PO; MONTELUKAST SOD10 MG PO; OMEPRAZOLE40 MG PO; ONCE DAILY1 EACH PO; POTASSIUM CHLO10 ME5 PO; PROZAC20 MG PO; REQUIP0.5 MG PO; RISPERDAL0.5 MG PO; RISPERIDONE1 MG PO; ROBITUSSIN5 ML PO; SYNTHROID137 MCG PO; TRAZODONE50 MG PO; TYLENOL325 M1 PO; VITAMIN D35000 UNIT PO; XYLOCAINE 1% PO; ZEASORB POWDER71 GM T; ZETIA10 MG PO
[2019-07-05 09:56] VITALS: BP 137/85
[2019-07-05 10:30] VITALS: BP 137/85
--- NOTE | 2019-07-05 10:53 | NUR ---
DR. DOHERTY NOTIFIED OF NEW ADMISSION, MEDICATIONS AND DIAGNOSIS UPDATED FOR REVIEW.
--- NOTE | 2019-07-05 11:34 | NUR ---
psychosocial hx completed this date.
--- NOTE | 2019-07-05 11:39 | NUR ---
ELISE MARIO a 68 year old F admitted via ambulance from the ADMITTING as a emergency 72 hr. hold admission. Arrived on unit at 0938. Vital signs are: 97.4-83-20 137/85. The client signed the following forms with stated understanding: Authorization For The Release of Medical Information, Clothing List Consent and Release Forms/Receipt of Rights, Acknowledgement of Advance Directive Information, Behavioral Health Consent Form, and Informed Consent of Medications. [facility] A search was conducted and hazardous articles were removed. Client was oriented to the unit. ROHIT VANESSA
--- NOTE | 2019-07-05 15:45 | NUR ---
Shift chart check completed.
--- NOTE | 2019-07-05 17:25 | NUR ---
PT COMPLAINT OF PAIN IN LOWER BACK 7 ON 1-10 SCALE REQUESTED TYLENOL WHICH WAS GIVEN AT THIS TIME
[2019-07-05 20:01] VITALS: BP 140/84
--- NOTE | 2019-07-05 22:06 | NUR ---
Patient alert and oriented x3. Patient demanding and intrusive by making several demands about phone calls,articles of clothing,and various other issues. No signs of any hallucinations noted at this time. Patient compliant with medications without difficulty. Provided 1:1 for emotional support and for therapeutic communication. Plan to continue to encourage medication compliance. Also continue to provide emotional support and therapeutic communication. Q 15 minute safety checks continued and maintained. See [facility] flowsheet for further documentation.
--- NOTE | 2019-07-06 00:33 | NUR ---
24 HR chart check completed.
--- NOTE | 2019-07-06 05:30 | NUR ---
Patient slept approx. 6 hours throughout shift. Q 15 minute safety checks continued and maintained.
[2019-07-06 07:41] LABS: BASO % 0.3 % (0.0-1.0); EOS # 0.1 10*3/uL (0.0-0.4); EOS % 0.7 % (1.0-4.0); HEMATOCRIT 37.7 % (37.0-47.0); HEMOGLOBIN 12.5 g/dl (12.0-16.0); LYMPH # 1.9 10*3/uL (1.3-4.4); LYMPH % 25.7 % (27.0-41.0); MEAN CELL VOLUME 84.7 fl (81.0-99.0); MEAN CORPUSCULAR HGB 28.1 pg (27.0-31.0); MEAN CORPUSCULAR HGB CONC 33.2 g/dl (33.0-37.0); MEAN PLATELET VOLUME 11.4 fl (9.6-12.3); MONO # 0.9 10*3/uL (0.1-1.0); MONO % 12.5 % (3.0-9.0); NEUT # 4.3 10*3/uL (2.3-7.9); NEUT % 59.8 % (47.0-73.0); PLATELET COUNT AUTOMATED 101 10*3/uL (130-400); RED BLOOD COUNT 4.45 10*6/uL (4.10-5.10); RED CELL DISTRI WIDTH 16.9 % (0-14.5); WHITE BLOOD COUNT 7.2 10*3/uL (4.8-10.8)
[2019-07-06 07:44] VITALS: BP 148/80
[2019-07-06 07:57] LABS: ALBUMIN 2.5 gm/dl (3.1-4.5); ALKALINE PHOSPHATASE 48 U/L (45-117); BUN 18 mg/dl (7-24); CHLORIDE 104 mmol/L (98-107); CHOLESTEROL 132 mg/dL (<200); CREATININE 0.79 mg/dL (0.55-1.02); HDL CHOLESTEROL 51 mg/dl (40-60); LDL CHOLESTEROL 68 mg/dL (9-159); SGOT/AST 14 IU/L (3-35); SGPT/ALT 14 U/L (12-78); SODIUM 138 mmol/L (136-145); TOTAL PROTEIN 5.6 gm/dL (6.4-8.2); TRIGLYCERIDES 63 mg/dl (<150); VLDL CHOLESTEROL 13 mg/dL (6-40)
[2019-07-06 08:00] LABS: VALPROIC ACID (DEPAKENE) 80.4 ug/ml (50-100)
--- NOTE | 2019-07-06 08:12 | NUR ---
Occupational therapy orders received as well as nursing screen. Will follow up with patient for completion of OT eval. Thank you. Maddy Thompson OTR/L
[2019-07-06 08:41] LABS: VITAMIN D, 25-HYDROXY 45.4 ng/mL (30-100)
--- NOTE | 2019-07-06 10:26 | NUR ---
Treatment plan meeting held with Dr Ramires RN, ELECTRONIC WARFARE OFFICER-S, and neonatal icu coordinator. Discharge date undetermined at this time. Await confirmation that pt is to return to [facility] upon discharge.
--- NOTE | 2019-07-06 11:41 | NUR ---
AM GROUP PT DID NOT ATTEND MORNING GROUP THERAPY. PT WAS IN BED SLEEPING SOUNDLY AND DID NOT RESPOND TO MY KNOCK OR INVITATION TO JOIN GROUP.
--- NOTE | 2019-07-06 14:14 | NUR ---
PHYSICAL THERAPY Pt participating in activities. Will attempt later. Thank you July Lagos, PT, DPT
--- NOTE | 2019-07-06 14:15 | NUR ---
Occupational therapy orders received and chart reviewed. Patient was in group upon OT arrival. Will follow up with patient for completion of OT eval. Thank you. Maddy Thompson, OTR/L
--- NOTE | 2019-07-06 14:47 | NUR ---
Per XENA De Jesus at [facility], pt is long-term care resident and is to return there upon discharge.
--- NOTE | 2019-07-06 15:42 | NUR ---
Attempted to meet with pt at her request. However, pt was using the phone at the time.
--- NOTE | 2019-07-06 15:42 | NUR ---
Clinical update faxed to Liza at [facility].
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
[2019-07-06 20:00] VITALS: BP 119/57
--- NOTE | 2019-07-06 20:31 | NUR ---
EVENING/RELAXTION/STORY/MUSIC PT ATTENDED AND PARTICIP[ATED IN GROUP BY OBSERVING AND SOCIALIZING. PT PLEASNAT AND ON TASK WITH NO S.I. EXPRESSED AT THIS TIME. PT WILL CONTINUE TO BE ENCOURAGED TO ATTEND AN DPARTICIPATE IN FUTURE GROUP SESSIONS.
--- NOTE | 2019-07-06 22:29 | NUR ---
TYLENOL FOR 10/10 BACK AND LEGS.
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
--- NOTE | 2019-07-07 06:06 | NUR ---
SLEPT WELL PAST MIDNIGHT
[2019-07-07 08:09] VITALS: BP 130/61
--- NOTE | 2019-07-07 08:30 | NUR ---
Treatment Plan meeting with Dr. Ramires, RN, AT, SW and Scientific Writer. Plan for discharge next week. Pt. will return to [facility] at discharge.
--- NOTE | 2019-07-07 11:29 | NUR ---
DR. DOHERTY ON UNIT TO ASSESS PT. UPDATE PROVIDED.
--- NOTE | 2019-07-07 11:42 | NUR ---
AM GROUP PT ATTENDED MORNING GROUP THERAPY AND PARTICIPATED BY WRITING A LIST OF CONCERNS AND PRIORITIZING THEM. PT IS STILL DELUSIONAL AND MOSTLY CONCERNED WITH NOT HAVING A WINTER COAT AND NO MONEY TO BUY ONE. PT CANNOT BE REASONED WITH AND IS NOT RECEPTIVE TO COPING STRATEGIES.
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
--- NOTE | 2019-07-07 14:55 | NUR ---
Left a voicemail message for Liza, social work assistant at [facility], requesting a return call to discuss pt's financial concerns.
--- NOTE | 2019-07-07 15:56 | NUR ---
PM GROUP PT WAS PRESENT FOR AFTERNOON GROUP THERAPY BUT CHOSE NOT TO PARTICIPATE. PT SAT AT THE BACK OF THE ROOM AND OBSERVED. PT EXPRESSED NO SUICIDAL IDEATIONS WHILE IN GROUP
[2019-07-07 20:00] VITALS: BP 125/56
--- NOTE | 2019-07-07 20:31 | NUR ---
EVENING/BINGO/STORY PT IN ATTENDANCE AND CHOSE NOT TO PARTICIPATE IN BINGO. THIS STAFF ALSO OFFERED PT "CRYPTOGRAM" PUZZLES BUT PT STATES SHE DOES NOT HAVE HER GLASSES BUT WILL OBSERVE AND PARTICIPATE IN CONVERSATION. PT ENJOYED THE FLOWER STORY AND SHARED/REMINISCED AT THIS TIME.PT DID NOT EXPRESS ANY S.I. OR PARANOID DELUSIONS AT THIS TIME. PT WILL CONTINUE TO ATTEND AND BE ENCOURAGED TO PARTICIPATE TO BEST OF PT ABILITY IN FUTURE GROUP SESSIONS.
--- NOTE | 2019-07-07 23:36 | NUR ---
24 HR chart check completed.
--- NOTE | 2019-07-08 05:44 | NUR ---
PT HAS SLEPT PAST 2229.
--- NOTE | 2019-07-08 06:58 | NUR ---
REQUESTED & MEDICATED WITH TYLENOL 650 MG PO @ 0655 FOR C/O NECK & LOWER BACK PAIN. RATED PAIN 10/10.
[2019-07-08 07:49] VITALS: BP 125/67
--- NOTE | 2019-07-08 08:30 | NUR ---
Treatment Plan meeting with Dr. Ramires, RN, AT, SW and Configuration Specialist. Plan for discharge Next week. Pt. will return to [facility].
--- NOTE | 2019-07-08 11:20 | NUR ---
Occupational therapy orders received and OT screening completed. Per patient, she has been up and moving within the unit. Patient noted she concluded her therapy at her assisted living facility last week. Patient stated she falls sometimes but stated "I don't think I need therapy." Patient educated on purpose of OT and assistance with ADLs and functional mobility, and patient declined services. Patient orders to be discharged. Thank you for the referral. Maddy Thompson, OTR/L
--- NOTE | 2019-07-08 11:54 | NUR ---
AM GROUP/MUSIC AND LIGHT THERAPY PT DID NOT ATTEND MORNING GROUP THERAPY. PT WAS IN BED RESTING.
--- NOTE | 2019-07-08 12:50 | NUR ---
P: DEPRESSED MOOD I: ONE ON ONE, REDIRECTION, ENCOURAGED TO PARTICIPATE IN GROUP SESSION. R: EFFECTIVE WITH ONE ON ONE PROVIDE. PATIENT IS ALERT TO PERSON, PLACE, TIME AND SITATION; ABLE TO VOICE NEEDS. MOOD IS DEPRESSED. DENIES ANY HALLUCINATIONS, DELUSIONS, HI/IS OR PAIN. INDEPENDENT WITH ACTIVITIES OF DAILY LIVING, CONTINENT OF BOWEL AND BLADDER. SET UP FOR MEALS, INTAKES ARE GOOD WITH ADEQUATE FLUIDS. AMBULATORY WITH STEADY GAIT. Q 15 MINUTE SAFETY CHECKS. MEDICATION COMPLAINT WITH EDUCATION PROVIDED. P: CONTINUE TO MONITOR MOOD, PROVIDE ONE ON ONE FOR EMOTIONAL SUPPORT NEEDED.
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
--- NOTE | 2019-07-08 15:54 | NUR ---
Shift chart check completed.
[2019-07-08 20:00] VITALS: BP 133/73
--- NOTE | 2019-07-08 20:25 | NUR ---
24 HR chart check completed.
--- NOTE | 2019-07-08 23:00 | NUR ---
MOOD IS MILDLY DEPRESSED BUT PLEASANT. ALERT & ORIENTED X 4. INDEPENDANT WITH AMBULATION & NEEDS. SAT IN THE DINING ROOM WATCHING TV. ATE SNACK. COMPLIANT WITH MEDICATIONS. DID C/O DIFFICULTY TRYING TO FALL ASLEEP BECAUSE "I HAVE A LOT OF THOUGHTS IN MY HEAD". RECEPTIVE TO DIVERSIONAL ACTIVITIES FOR RELAXATION.
--- NOTE | 2019-07-09 06:05 | NUR ---
PT SAT QUIETLY IN THE DINING ROOM WITH LIGHTS OFF. STATED THAT SHE HAD ALOT ON HER MIND & WAS TRYING TO RELAX. NOTED TO BE SLEEPING @ 0200.
[2019-07-09 08:00] VITALS: BP 119/71
--- NOTE | 2019-07-09 09:00 | NUR ---
Discharge Plan remains unchanged. Plan is for Discharge Next week. Pt. would like for Closing Specialist and Copper Plater to Work on Alternate Placement. Assured Patient that this may not be accomplished in the time that she is hospitalized and that [facility] can Facilitate Alternate Placement if no Referral is accepted while patient is here on the [facility]. Pt. verbalized understanding but is very forgetful and does not often remember that conversation occured.
--- NOTE | 2019-07-09 09:40 | NUR ---
PATIENT C/O NAUSEA AT THIS TIME. PT DENIES ANY EMESIS. PATIENT REQUESTING AND RECEIVED AT THIS TIME ZOFRAN PO ONE TIME ORDER. WILL CONTINUE TO MONITOR FOR EFFECTIVENESS.
--- NOTE | 2019-07-09 10:40 | NUR ---
PATIENT STATES THAT ZOFRAN WAS EFFECTIVE. NO FURTHER COMPLAINTS AT THIS TIME.
--- NOTE | 2019-07-09 11:39 | NUR ---
AM GROUP PT ATTENDED MORNING GROUP THERAPY AND PARTICIPATED BY WORKING A Urban CompassOGRAM. PT WAS QUIET AND ON TASK. PT EXPRESSED NO SUICIDAL IDEATIONS WHILE IN GROUP
--- NOTE | 2019-07-09 11:39 | NUR ---
P- ANXIOUS; PREOCCUPIED WITH MEDICATIONS. I- ASSESS MOOD, ORIENTATION, SI/HI, HALLUCINATIONS, DELUSIONS OR PAIN. PROVIDE MEDICATIONS ON TIME WITH EDUCATION ON EACH. ENCOURAGE TO ATTEND/PARTICIPATE IN GROUP THERAPIES FOR EMOTIONAL SUPPORT AND SOCIALIZATION. 1:1 THERAPEUTIC INTERACTION WITH EMOTIONAL SUPPORT AND VENTILATION OF FEELINGS PROVIDED. PROVIDE REASSURANCE. PROVIDE WITH COPING/RELAXATION TECHNIQUES WHEN ANXIOUS. R- ALERT AND ORIENTED X3. PATIENT STATES THAT HER MOOD IS ANXIOUS AT TIMES TODAY. PATIENT EFFECTIVELY UTILIZING COPING/RELAXATION TECHNIQUES AND VERBALLY STATES ANXIETY RELIEF. REASSURANCE AND 1:1 INTERACTION EFFECTIVE. DENIES SI/HI, HALLUCINATIONS OR PAIN. NO S/S OF INTERACTING WITH INTERNAL STIMULI. NO DELUSIONAL THOUGHT PROCESS NOTED. NO S/S OF DISTRESS NOTED. RESPS EVEN AND UNLABORED ON ROOM AIR. PATIENT REMAINS PREOCCUPIED WITH MEDICATIONS, APPROACHING STAFF THROUGHOUT THE DAY AND ASKING THE SAME QUESTIONS ON DIFFERENT MEDICATIONS; EDUCATION AND REASSURANCE EFFECTIVE. MEDICATION COMPLAINT. GAIT STEADY WHILE AMBULATING. MAKES NEEDS KNOWN. PLEASANT WITH INTERACTION, PARTICIPATING. EATING AND DRINKING ADEQUATELY. P- ASSESS MOOD, ORIENTATION, SI/HI, HALLUCINATIONS, DELUSIONS OR PAIN EVERY SHIFT. PROVIDE MEDICATIONS ON TIME WITH EDUCATION ON EACH; PROVIDE FREQUENT TEACHING/REASSURANCE WHEN PREOCCUPIED. 1:1 INTERACTION PROVIDED WHEN NECESSARY. ENCOURAGE TO UTILIZE COPING/RELAXATION TECHNIQUES WHEN ANXIOUS DUE TO BEING EFFECTIVE FOR PATIENT. Q15 MINUTE CHECKS MAINTAINED FOR SAFETY.
--- NOTE | 2019-07-09 13:20 | NUR ---
Shift chart check completed.
--- NOTE | 2019-07-09 15:38 | NUR ---
PM GROUP PT ATTENDED AFTERNOON GROUP AND WAS CONTENT TO SIT AT THE BACK OF THE ROOM AND OBSERVE. PT WAS TALKATIVE AND ENJOYED SOCIALIZING WITH THE NURSING STUDENTS. PT EXPRESSED NO DELUSIONAL IDEATIONS WHILE IN GROUP
--- NOTE | 2019-07-09 15:42 | NUR ---
Referrals faxed to Alternate Facilities at Patient request for Assisted Care. [facility], [facility], [facility], [facility].
--- NOTE | 2019-07-09 15:43 | NUR ---
Late entry: Met with patient the afternoon of 07/08/19. Pt spoke of wanting to speak to her son Gaudencio who is in the [facility]. Located the number to the [facility] and gave to pt. Pt spoke of needing to get her social security money. She also spoke of needing to move.
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
[2019-07-09 20:26] VITALS: BP 115/65
--- NOTE | 2019-07-09 21:44 | NUR ---
24 HR chart check completed.
--- NOTE | 2019-07-10 01:02 | NUR ---
MOOD IS MILDLY DEPRESSED BUT PLEASANT. ALERT & ORIENTED X 4. ANXIETY LEVEL NOTED TO BE DECREASES. INDEPENDENT WITH AMBULATION & NEEDS. SAT IN THE DINING ROOM WATCHING TV. ATE SNACK. COMPLIANT WITH MEDICATIONS. INFORMED RN THAT SHE WAS HAPPY SHE GOT TO FINALLY TALK TO HER SON WHO IS IN [facility]. STATED IT HAS BEEN ABOUT 2 & A HALF YEARS SINCE SHE HAS TALKED TO HIM.
--- NOTE | 2019-07-10 06:16 | NUR ---
PT HAS SLEPT PAST 2144.
[2019-07-10 08:00] VITALS: BP 133/89
--- NOTE | 2019-07-10 08:30 | NUR ---
Treatment plan meeting was held this a.m. with Dr. Ramires RN, AT, CUSTOMER SERVICE REP-S and Frame Assembler in attendance. Plan for discharge discussed for next week. Referrals have been faxed to Numerous facilities at Pt. request for alternate Placement. Will follow today.
--- NOTE | 2019-07-10 11:00 | NUR ---
Received Call from Benita at [facility]. No female beds at this time. Spoke with Dionne at [facility]. No beds available at this time. Dionne had spoken with [facility] and [facility]. No beds available at this time. Spoke with Pratibha Baker for [facility] concerning referrals to [facility] and [facility]. Pt. cannot return to [facility] due to previous issues and Elopement from [facility]. Received Call from Amy at the [facility] who will need to do onsite Assessment for Referral on Saturday between 11:00-11:30.
--- NOTE | 2019-07-10 11:41 | NUR ---
AM GROUP PT WAS PRESENT AT THE START OF MORNING GROUP THERAPY BUT LEFT WITH A BRUSHING OPERATOR FOR MEDICATION EDUCATION.
--- NOTE | 2019-07-10 14:09 | NUR ---
Shift chart check completed.
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
--- NOTE | 2019-07-10 14:15 | NUR ---
Clinical Updates faxed to [facility] Attn: Amy .
--- NOTE | 2019-07-10 14:17 | NUR ---
P- "I FEEL A LITTLE SAD" I- ASSESS MOOD, ORIENTATION, SI/HI, HALLUCINATIONS, DELUSIONS OR PAIN. PROVIDE MEDICATIONS ON TIME WITH EDUCATION ON EACH. 1:1 THERAPEUTIC INTERACTION WITH EMOTIONAL SUPPORT AND VENTILATION OF FEELINGS PROVIDED. ENCOURAGE TO UTILIZE COPING/RELAXATION TECHNIQUES. ENCOURAGE TO ATTEND/PARTICIPATE IN GROUP THERAPY FOR EMOTIONAL SUPPORT AND SOCIALIZATION. R- ALERT AND ORIENTED X3. MOOD SLIGHTLY DEPRESSED. DENIES SI/HI, INTENT/PLAN, HALLUCINATIONS OR LOAJ. NO S/S OF INTERACTING WITH INTERNAL STIMULI. NO DELUSIONAL THOUGHT PROCESS NOTED. NO S/S OF DISTRESS NOTED. RESPS EVEN AND UNLABORED ON ROOM AIR. MEDICATION COMPLIANT. 1:1 INTERACTION AND COPING TECHNIQUES EFFECTIVE. PT STATES "I JUST FEEL A LITTLE SAD TODAY", UTILIZING DEEP BREATHING. PLEASANT WITH INTERACTION. INTERACTING, PARTICIPATING. GAIT STEADY WHILE AMBULATING. MAKES NEEDS KNOWN. EATING AND DRINKING ADEQUATELY. P- ASSESS MOOD, ORIENTATION, SI/HI, HALLUCINATIONS, DELUSIONS OR PAIN EVERY SHIFT. PROVIDE MEDICATIONS ON TIME WITH EDUCATION ON EACH. 1:1 INTERACTION NEEDED. ENCOURAGE TO ATTEND/PARTICIPATE IN GROUP THERPAIES. ENCOURAGE TO UTILIZE COPING/RELAXATION TECHNIQUES. Q15 MINUTE CHECKS MAITNAINED FOR SAFETY.
--- NOTE | 2019-07-10 15:33 | NUR ---
PM GROUP PT DID NOT ATTEND AFTERNOON GROUP THERAPY. PT WAS IN BED RESTING
[2019-07-10 19:51] VITALS: BP 109/65
--- NOTE | 2019-07-10 21:59 | NUR ---
P-PREOCCUPIED I-REDIRECTION WITH 1:1 THERAPEUTIC INTERVENTIONS. EDUCATE AND ENCOURAGE MEDICATION COMPLIANCE R-PATIENT WANTING TO DISCUSS WITH THIS NURSE CURRENT MENTAL HEALTH DIAGNOSIS AND WANTING TO REVIEW MEDICATIONS FOR SLEEP AND PAIN. THIS NURSE REVIEWED DIAGNOSIS AND MEDICATIONS WITH PATIENT. PATIENT RECEPTIVE TO THIS NURSE'S RESPONSES. PATIENT MEDICATION COMPLIANT AT HS. PATIENT PROIVED NOURISHMENT AND FLUIDS AT HS. PATIENT AMBULATING ON UNIT WITH STEADY GAIT AND WITHOUT ASSISTIVE DEVICE. P-CONTINUE TO ENCOURAGE MEDICATION COMPLIANCE, ENCOURAGE GROUP THERAPY WHILE AWAKE
--- NOTE | 2019-07-11 05:41 | NUR ---
PATIENT SLEPT 5 HOURS OF INTERRUPTED SLEEP THROUGHOUT SHIFT. Q 15 MINUTE CHECKS MAINTAINED. 24 HR chart check completed.
[2019-07-11 07:36] VITALS: BP 123/75
--- NOTE | 2019-07-11 09:38 | NUR ---
A&O TO PERSON, PLACE, TIME, AND SITUATION. MEDICATION COMPLIANT. MEDICATION EDUCATION PROVIDED AND PT VERBALIZED UNDERSTANDING. DENIED SI/HI. DENIED PAIN AT THIS TIME. DENIES HALLUCINATIONS AND DELUSIONS. PT STATED SHE DI NOT SLEEP WELL LAST NIGHT, HOWEVER STATED SHE SLEPT YESTERDAY DURING THE DAY. ENCOURAGED PT TO STAY AWAKE MORE TODAY AND ATTEND/PARTICIPATE IN GROUP. PT C/O COUGHING. WILL CONTACT DR REGARDING MEDICATION. OFFERED PT CLARITIN AND PT STATED SHE CAN NOT TAKE CLARITIN HOWEVER CAN TAKE BENADRYL. WILL UPDATE DR REGARDING THIS. SHOWERED THIS AM. NO ADVERSE MOODS OR BEHAVIORS NOTED THIS MORNING. SEE [facility] FLOWSHEET FOR SPECIFIC MONITORING.
--- NOTE | 2019-07-11 11:47 | NUR ---
AM GROUP/BINGO/MUSIC PT IN ATTENDANCE AND PARTICIPATED BY OBSERVING AND LISTENING TO [place]. PT ALSO SOCIALIZING WITH THIS STAFF AND PEERS. PT DID NOT EXPRESS ANY S.I. OR PARANOID DELUSIONS AT THIS TIME. PT WILL CONTINUE TO ATTEND AND PARTICIPATE IN GROUP.
--- NOTE | 2019-07-11 13:21 | NUR ---
PT REQUESTED TYLENOL FOR LEG PAIN. STATED PAIN WAS AN 8 ON A SCALE OF 0-10. WILL MONITOR EFFECTIVENESS OF MEDICATION.
--- NOTE | 2019-07-11 15:49 | NUR ---
PM GROUP/LEISURE SKILLS PT IN ATTENDANCE RELAXING AND OBSERVING. PT PARTICIPATION THROUGH SOCIALIZATION WITH THIS STAFF AND PEERS. PT WILL CONTINUE TO ATTEND AND PARTICIPATE IN FUTURE GROUP SESSIONS TO BEST OF PT ABILITY.
[2019-07-11 19:26] VITALS: BP 129/68
--- NOTE | 2019-07-11 22:44 | NUR ---
P-PREOCCUPIED I-REDIRECTION WITH 1:1 THERAPEUTIC INTERVENTIONS. EDUCATE AND ENCOURAGE MEDICATION COMPLIANCE R-PATIENT WANTING TO DISCUSS WITH THIS CURRENT MEDICATIONS. PATIENT PREOCCUPIED WITH OXYGEN SATURATION. PULSE OXIMETRY CHECKED WITH RESULTS ABOVE 95% ON ROOM AIR. THIS NURSE REVIEWED DIAGNOSIS AND MEDICATIONS WITH PATIENT. PATIENT RECEPTIVE TO THIS NURSE'S RESPONSES. PATIENT MEDICATION COMPLIANT AT HS. PATIENT PROIVED NOURISHMENT AND FLUIDS AT HS. PATIENT AMBULATING ON UNIT WITH STEADY GAIT AND WITHOUT ASSISTIVE DEVICE. P-CONTINUE TO ENCOURAGE MEDICATION COMPLIANCE, ENCOURAGE GROUP THERAPY WHILE AWAKE
--- NOTE | 2019-07-12 05:28 | NUR ---
PATIENT SLEPT 2 HOURS OF INTERRUPTED SLEEP THROUGHOUT SHIFT. Q 15 MINUTE CHECKS MAINTAINED. 24 HR chart check completed.
[2019-07-12 07:18] VITALS: BP 123/79
--- NOTE | 2019-07-12 11:30 | NUR ---
AM GROUP/REMINISCE PTATTENDED AND PARTICIPATED IN GROUP BY REMINISCING AND ENGAGING IN CONVERSATION WHILE THIS STAFF READS. PT ALSO PARTICIPATED IN "WHATS IN THE BAG GAME". PT WILL CONTINUE TO ATTEND AND PARTICIPATE IN GROUP TO BEST OF PT ABILITY IN FUTURE GROUP SESSIONS.
--- NOTE | 2019-07-12 13:55 | NUR ---
PT C/O PAIN TO BACK AND LEGS. REQUESTED TYLENOL. PRN TYLENOL GIVEN. RATED PAIN AN 8 ON A SCALE OF 0-10. WILL MONITOR EFFECTIVNESS OF MEDICATION.
--- NOTE | 2019-07-12 17:30 | NUR ---
A&O TO PERSON, PLACE, TIME, AND SITUATION. MEDICATION COMPLIANT. MEDICATION EDUCATION PROVIDED AND PT VERBALIZED UNDERSTANDING. DENIED SI/HI. DENIED PAIN AT THIS TIME. DENIES HALLUCINATIONS AND DELUSIONS. PT STATED SHE SLEPT BETTER LAST NIGHT, AND THAT SHE DIDNT HEAR ANY NOISES ON THE UNIT. ENCOURAGED PT TO STAY AWAKE MORE TODAY AND ATTEND/PARTICIPATE IN GROUP. NO ADVERSE MOODS OR BEHAVIORS NOTED THIS MORNING. SEE [facility] FLOWSHEET FOR SPECIFIC MONITORING.
[2019-07-12 19:35] VITALS: BP 126/82
--- NOTE | 2019-07-12 21:09 | NUR ---
24 HR chart check completed.
--- NOTE | 2019-07-12 21:23 | NUR ---
P-PREOCCUPIED I-ALLOW PT TO VENT FEELINGS FOR EMOTIONAL SUPPORT, ADMINISTER MEDS, MONITOR SLEEP R-PT IS ALERT & ORIENTED X 4. MOOD PLEASANT. PREOCCUPIED WITH HER MONEY & FINANCIAL SITUATION. SAT IN DINING ROOM & ATE SNACK. COMPLIANT WITH MEDS. P-CONTINUE TO MONITOR & PROVIDE PHYSICAL ASSISTANCE & EMOTIONAL SUPPORT NEEDED.
--- NOTE | 2019-07-13 05:44 | NUR ---
PT SLEPT FROM [id number]. UP TO BATHROOM X 3 TO VOID INDEPENDENTLY. COMES DOWN TO DINING ROOM FOR WATER THROUGHOUT THE NIGHT.
[2019-07-13 08:00] VITALS: BP 135/79
--- NOTE | 2019-07-13 08:30 | NUR ---
Per Treatment plan meeting this a.m. Plan for Discharge today or tommorow. The [facility] is to Onsite Assess for Alternate Placement today. Will call to discuss with Amy at the [facility]. Clinical Updates faxed to Both [facility] and the [facility].
--- NOTE | 2019-07-13 10:50 | NUR ---
Spoke with Amy at the [facility] Via Telephone. Clinical Updates were faxed to facility this a.m. Amy was to Onsite Assess patient today but feels that Patient is more Appropriate to return to [facility] at this time. The [facility] is not a Locked or secure Facility and [facility] does have a secure unit. Amy thanked this commercial underwriter for Referral. Notified CURTIS Ortiz.
--- NOTE | 2019-07-13 11:00 | NUR ---
DR. DOHERTY ON UNIT TO ASSESS PATIENT.
--- NOTE | 2019-07-13 11:36 | NUR ---
AM GROUP/LIGHT AND MUSIC THERAPY PT ATTENDED MORNING GROUP THERAPY AND PARTICIPATED BY LISTENING TO MUSIC AND ATTEMPTING CONVERSATION WITH PEERS. PT EXPRESSED NO PARANOID DELUSIONS WHILE IN GROUP.
--- NOTE | 2019-07-13 12:05 | NUR ---
PT ALERT AND ORIENTED X4. STABLE MOOD. INTERACTIVE AND PARTICIPATING. NO HALLUCINATIONS OR DELUSIONS NOTED. AMBULATORY, STEADY GAIT. MEDICATION COMPLIANT WITHOUT DIFFICULTY. MEDICATION EDUCATION PROVIDED AND PT VERBALIZED UNDERSTANDING. NO ADVERSE MOODS OR BEHAVIORS NOTED. SEE [facility] FLOWSHEET FOR SPECIFIC MONITORING.
--- NOTE | 2019-07-13 15:25 | NUR ---
Shift chart check completed.
--- NOTE | 2019-07-13 15:45 | NUR ---
PM GROUP PT WAS PRESENT FOR AFTERNOON GROUP THERAPY BUT CHOSES NOT TO PARTICIPATE IN ANY ACTIVITY OFFERED. PT GOT UP AND LEFT GROUP AND DID NOT RETURN. PT EXPRESSED NO PARANOID DELUSIONS WHILE IN GROUP.
[2019-07-13 19:16] VITALS: BP 120/66
--- NOTE | 2019-07-13 19:34 | NUR ---
24 HR chart check completed.
--- NOTE | 2019-07-13 19:36 | NUR ---
24 HR chart check completed.
--- NOTE | 2019-07-13 20:31 | NUR ---
EVENING/AROMATHERAPY/MUSIC/REMINISCE PT ATTENDED AND PARTICIPATED IN REMINISCE ACTIVITY AND LISTENED TO MUSIC. PT DID NOT EXPRESS ANY S.I. OR PARANOID DELUSIONS AT THIS TIME. PT WILL CONTINUE TO ATTEND FUTURE GROUP SESSIONS AN DPARTICIPATE TO BEST OF ABILITY.
--- NOTE | 2019-07-13 21:40 | NUR ---
P-PHYSICAL COMPLAINTS I-ALLOW PT TO VENT FEELINGS FOR EMOTIONAL SUPPORT, ADMINISTER MEDS, MONITOR SLEEP R-PT IS ALERT & ORIENTED X 4. MOOD PLEASANT & STABLE. SAT IN DINING ROOM & ATE SNACK. COMPLIANT WITH MEDS. C/O DRY MOUTH & MEDICATED WITH BIOTENE. ALSO C/O INTERMITTENT NAUSEA & REQUESTED & MEDICATED WITH COMPAZINE 10 MG IM @ 2054. AMBULATES INDEPENDENTLY & CONTINENT OF BLADDER. P-CONTINUE TO MONITOR & PROVIDE PHYSICAL ASSISTANCE & EMOTIONAL SUPPORT NEEDED.
--- NOTE | 2019-07-14 02:30 | NUR ---
PT AWAKE AT THIS TIME. C/O BACK PAIN & STATED SHE NEEDED ANOTHER SHOT FOR PAIN. INFORMED HER THAT SHOT WAS NOT FOR PAIN BUT FOR HER NAUSEA THAT SHE C/O EARLIER. OFFERED PRN BIOTENE THAT SHE HAD REQUESTED APPROXIMATELY 20 MINUTES EARLIER & HAS RETURNED TO SLEEP WHEN RN TOOK IT TO HER. SHE STATED, "OH ITS TIME FOR THAT AGAIN". INFORMED PT THAT SHE APPEARED TO BE SLEEPING. PT BECAME UPSET AT THIS TIME & RAISED HER VOICE STATING THAT SHE WAS NOT SLEEPING & HASNT BEEN SLEEPING. PRESSURED SPEECH. CONTINUED STATING. "I'M SICK & TIRED OF THE DOCTORS & EVERYONE TELLING ME WHAT I CAN & CANT DO. WHAT PILLS I CAN TAKE & WHAT I CANT. I'M THINKING ABOUT MY FAMILY ALL THE TIME. WHAT MEDICINE CAN I HAVE NOW. I'M ON SO MANY I DONT KNOW WHAT I'M TAKING". ATTEMPTED TO OFFER PT SUGGESTIONS TO MAKE HERSELF MORE COMFORTABLE & FOR EVERY SUGGESTION OFFERED SHE HAD A NEGATIVE RESPONSE. STATED SHE COULDNT BREATH IF SHE LAYED DOWN. SHE CONTINUED TO VOICE NUMEROUS SOMATIC COMPLAINTS VOICED. ALLOWED PT TO VENT SHE WAS NOT RECEPTIVE TO ANY SUGGESTIONS STAFF HAD. ENCURAGED HER TO SPEAK TO MEDICAL DOCTOR THIS AM. PT VENTED APPROX 10 MIN WITH RN JUST LISTENING & ANOTHER STAFF LISTENING QUIETLY IN THE RUIZ WAY. SHE DID CALM DOWN & APOLOGIZED TO RN.
--- NOTE | 2019-07-14 06:09 | NUR ---
PT HAS SLEPT PAST 2214 WITH INTERMITTENT AWAKENINGS SLEEPING APPROX. 6 HOURS
--- NOTE | 2019-07-14 07:06 | NUR ---
PT REQUESTED & MEDICATED WITH TYLENOL 650 MG PO @ THIS TIME FOR C/O NECK PAIN. RATED PAIN 7/10
--- NOTE | 2019-07-14 08:02 | NUR ---
NO FURTHER COMPLAINTS OF PAIN, PATIENT STATED "MY NECK FEELS BETTER" PRN TYLENOL EFFECTIVE.
[2019-07-14 08:08] VITALS: BP 123/65
--- NOTE | 2019-07-14 08:30 | NUR ---
Treatment Plan meeting was held this a.m. with Dr. Ramires, RN, AT, FAST FOOD ASSISTANT RESTAURANT MANAGER-S and Direct Care Supervisor in attendance. Plan for discharge Sat/. Pt. will return to [facility].
--- NOTE | 2019-07-14 10:19 | NUR ---
DR. BABIN ON UNIT TO ASSESS PATIENT.
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
--- NOTE | 2019-07-14 11:02 | NUR ---
P: DEPRESSED MOOD, DURING INTERVIEW PATIENT STATED "YES, I FEEL SOMEWHAT DEPRESSED" I: ONE ON ONE FOR EMOTIONAL SUPPORT, ENCOURAGE GROUP PARTICIPATION. R: EFFECTIVE; PATIENT INTERACTIVE WITH STAFF AND OTHER PARTICIPATION. PATIENT PARTICIPATING IN GROUP SESSION AND INTERACTIVE WITH NURSING STUDENTS. PATIENT IS ALERT TO PERSON, PLACE AND SITUATION; MEMORY GAPS NOTED. ABLE TO VOICE NEEDS. 1 PERSON ASSIST WITH ACTIVITIES OF DAILY LIVING, CONTINENT OF BOWEL AND BLADDER, SET UP FOR MEALS, INTAKES ARE GOOD WITH ADEQUATE FLUIDS. P: CONTINUE TO MONITOR MOOD; PROVIDE ONE ON ONE TO EXPRESS FEELING, EMOTIONAL SUPPORT. ENCOURAGE GROUP PARTICIPATION NEEDED.
--- NOTE | 2019-07-14 11:30 | NUR ---
AM GROUP PT ATTENDED MORNING GROUP THERAPY LATE AND PARTICIPATED BY PLAYING ONE GAME OF CARDS WITH THE NURSING STUDENTS. PT COMPLAINED OF HER BACK ACHING AND MOVED TO THE BACK OF THE ROOM WHERE SHE SOCIALIZED WITH A VICE CHAIRMAN. PT EXPRESSED NO PARANOID DELUSIONS WHILE IN GROUP
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
--- NOTE | 2019-07-14 15:13 | NUR ---
PATIENT COMPLAINING OF LOWER BACK PAIN, RATING PAIN 7/10, DECLINED TO ATTEMPT TO USE ICE. ENCOURAGED PATIENT TO REST IN BED, TO CHANGE POSITIONING FOR COMFORT. PATIENT DECLINED.
--- NOTE | 2019-07-14 16:34 | NUR ---
Shift chart check completed.
[2019-07-14 19:01] VITALS: BP 132/67
--- NOTE | 2019-07-14 19:54 | NUR ---
24 HR chart check completed.
--- NOTE | 2019-07-14 21:53 | NUR ---
P-MILD ANXIETY I-ALLOW PT TO VENT FEELINGS FOR EMOTIONAL SUPPORT, ADMINISTER MEDS, MONITOR SLEEP R-PT IS ALERT & ORIENTED X 4. MOOD PLEASANT & STABLE. STATED THAT SHE HAD SOME ANXIETY TODAY BUT IS FEELING BETTER. SAT IN DINING ROOM & ATE SNACK. COMPLIANT WITH MEDS. C/O DRY MOUTH & MEDICATED WITH PRN BIOTENE. AMBULATES INDEPENDENTLY & CONTINENT OF BLADDER. P-CONTINUE TO MONITOR & PROVIDE PHYSICAL ASSISTANCE & EMOTIONAL SUPPORT NEEDED.
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
--- NOTE | 2019-07-15 06:19 | NUR ---
PT HAS REMAINED AWAKE THROUGHOUT MOST OF THE SHIFT. NOTED TO SLEEP INTERMITTENTLY FOR APPROX 2 1/2 HOURS.
[2019-07-15 07:58] VITALS: BP 149/85
--- NOTE | 2019-07-15 08:30 | NUR ---
Treatment Plan meeting was held this a.m. with Dr. Ramires, RN, AT, DIGITAL MARKETING EXECUTIVE-S and Medical Assisting Program Director in attendance. Plan for discharge with return to [facility].
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
--- NOTE | 2019-07-15 10:25 | NUR ---
DR. BABIN ON UNIT TO ASSESS PT, UPDATE PROVIDED.
--- NOTE | 2019-07-15 11:38 | NUR ---
AM GROUP/MUSIC AND GAMES PT ATTENDED MORNING GROUP THERAPY AND PARTICIPATED BY LISTENING TO MUSIC AND SOCIALIZING WITH THIS BOOKKEEPER. PT EXPRESSED NO PARANOID DELUSIONS WHILE IN GROUP
--- NOTE | 2019-07-15 13:40 | NUR ---
Spoke to Tracy Palacio at [facility] who handles the resident billing. Tracy informed this proposal manager writer that they have submitted the request to [employer] to become pt's payee. When finalized, pt's SS would go directly to the and pt would be given $50 each month from the billing office. Informed pt of this.
--- NOTE | 2019-07-15 14:21 | NUR ---
P: PT PREOCCUPIED WITH MULTIPLE COMPLIANTS. PT MED SEEKING STATING "DID DR SANDOVAL ORDER ME SOMETHING ELSE, HE SAID HE WAS GOING TO SUPPLEMENT MY MEDICATIONS WITH KLONOPIN OR SOMETHING" PT APPROACHED THIS NURSE MUTLIPLE TIMES RE: OTHER MEDICATIONS SUCH HEMMORHOID MEDICATIONS, BENTYL, MAALOX. SHORT TERM MEMORY DEFICITS NOTED AT TIMES, PT ASKING THE SAME QUESTIONS WITHIN A SHORT PERIOD OF TIME AND STATING "OH I FORGOT I ASKED THAT I ALREADY, IM SORRY." PT HOPELESS/HELPLESS AT TIMES, ASKING FOR A SHOWER AND STATING "I CAN'T DO THESE THINGS BY MYSELF" I: PROVIDED MED EDUCATION, ADVISED PT THAT SHE IS RECEIVING HER MEDICATIONS ORDERED. PROVIDED EMOTIONAL SUPPORT AND 1:1 FOR PT TO VOICE FEELINGS, PROVIDE RE-ORIENTATION NEEDED. ENCOURAGED PT TO COMPLETE ADL'S TO MAINTAIN CURRENT LEVEL OF INDEPENDENCE. R: PT CONTINUES WITH SHORT TERM MEMORY DEFICITS, CONTINUES TO ASK SAME QUESTIONS REPEATEDLY, CONTINUES TO BE PREOCCUPIED WITH MULTIPLE COMPLIANTS. PT MED COMPLIANT WITHOUT DIFFICULTY. PT ALERT TO PERSON, PLACE AND TIME. NO HALLUCINATIONS OR DELUSIONS NOTED. PT DENIES ANY SUICIDAL THOUGHTS. PT AMBULATORY THROUGHOUT UNIT, GAIT STEADY. PT CONTINENT OF BOWEL AND BLADDER. P: MONITOR PT BEHAVIORS ON Q15 MIN SAFETY CHECKS, ENCOURAGE MED COMPLIANCE AND PROVIDE MED EDUCATION, PROVIDE EMOTIONAL SUPPORT AND 1:1 FOR PT TO VOICE FEELINGS, ENCOURAGE PT TO COMPLETE ADLS TO MAINTAIN CURRENT LEVEL OF INDEPENDENCE.
--- NOTE | 2019-07-15 14:33 | NUR ---
Transportation arranged with [facility] to Transport with Contact Center Director time between 2:00-3:00 p.m. on 07/16/2019.
--- NOTE | 2019-07-15 15:38 | NUR ---
PM GROUP PT ATTENDED AND PARTICIPATED IN AFTERNOON GROUP THERAPY. PT WAS TALKATIVE AND MADE CONVERSATION WITH PEERS. PT EXPRESSED NO PARANOID DELUSIONS WHILE IN GROUP
[2019-07-15 19:32] VITALS: BP 139/66
--- NOTE | 2019-07-15 20:00 | NUR ---
Patient sitting quietly in dining room with peers with no c/o discomfort. Respirations easy and regular. Vital signs stable. No overt distress. ELVIS ADAMSON
--- NOTE | 2019-07-15 21:21 | NUR ---
PT C/O INDIGESTION, REQUESTING MAALOX, ADMINISTERED AT THIS TIME.
--- NOTE | 2019-07-15 22:02 | NUR ---
MAALOX APPEARS EFFECTIVE AT THIS TIME. PT IN BED RESTING QUIETLY.
--- NOTE | 2019-07-16 03:04 | NUR ---
The patient has no complaints and is resting comfortably. ELVIS ADAMSON
--- NOTE | 2019-07-16 03:04 | NUR ---
24 HR chart check completed.
--- NOTE | 2019-07-16 06:35 | NUR ---
PT SLEPT 6 INTERRUPTED HOURS THIS SHIFT. NO ADVERSE MOODS OR BEHAVIORS.
--- NOTE | 2019-07-16 07:40 | NUR ---
PATIENT SITTING IN DINING ROOM WITH PEERS EATING BREAKFAST, INTERACTING. NO VOICED COMPLAINTS AT THIS TIME. NO S/S OF DISTRESS NOTED. RESPS EVEN AND UNLABORED ON ROOM AIR.
--- NOTE | 2019-07-16 07:50 | NUR ---
DR. HAUSER NOTIFIED OF DISCHARGE TODAY.
[2019-07-16 08:01] VITALS: BP 114/54
--- NOTE | 2019-07-16 08:30 | NUR ---
Treatment Plan meeting with Dr. Ramires RN, AT, [facility] in attendance. Plan for discharge today with return to [facility]. Transportation has been arranged with [facility] to transport with continuous pickling line pickler between 2:00 p.m.-3:00 p.m.
[2019-07-16] MEDS ORDERED: DULOXETINE HCL30 MG PO (08:34)
[2019-07-16] MEDS ORDERED: BLUE GEL226.8 GM T (08:34)
[2019-07-16] MEDS ORDERED: INVEGA9 MG PO (08:34)
[2019-07-16] MEDS ORDERED: ROZEREM8 MG PO (08:34)
[2019-07-16] MEDS ORDERED: DIVALPROEX SOD500 MG PO (08:34)
[2019-07-16] MEDS ORDERED: BIOTENE MOIST44.3 ML PO (08:34)
[2019-07-16] MEDS ORDERED: DULOXETINE HCL60 MG PO (08:34)
--- NOTE | 2019-07-16 08:45 | NUR ---
P- PREOCCUPIED WITH MEDICATIONS I- ASSESS MOOD, ORIENTATION, SI/HI, HALLUCIATIONS, DELUSIONS OR PAIN. 1:1 INTERACTION WITH EMOTIONAL SUPPORT AND VENTILATION OF FEELINGS PROVIDED. PROVIDE PRESCRIBED MEDICATIONS ON TIME WITH EDUCATION ON EACH. PROVIDE REASSURANCE. R- ALERT AND ORIENTED X3. MOOD STABLE. DENIES SI/HI, HALLUCINATIONS OR PAIN. NO S/S OF INTERACTING WITH INTERNAL STIMULI. NO DELUSIONAL THOUGHT PROCESS NOTED. NO S/S OF DISTRESS NOTED. RESPS EVEN AND UNLABORED ON ROOM AIR. PT REMAINS PREOCCUPIED WITH MEDICATIONS AND ASKING FREQUENTLY ABOUT PAST MEDICATIONS/PRN MEDICATIONS PRESCIRBED. EDUCATION AND 1:1 INTERACTION EFFECTIVE. GAIT STEADY WHILE AMBULATING THE UNIT. MAKES NEEDS KNOWN. P- ASSESS MOOD, ORIENTATION, SI/HI, HALLUCINATIONS, DELUSIONS OR PAIN EVERY SHIFT. PROVIDE 1:1 THERAPEUTIC INTERACTION WITH EMOTIONAL SUPPORT AND VENTILATION OF FEELINGS WHEN NECESSARY. PROVIDE PRESCRIBED MEDICATIONS ON TIME WITH EDUCAITON ON EACH, PROVIDE REASSURANCE. Q15 MINUTE CHECKS MAINTAINED FOR SAFETY.
--- NOTE | 2019-07-16 10:37 | NUR ---
PHYSICAL THERAPY Spoke with staff on [facility], patient is for discharge back to [facility] today. Per staff pt does her own self care, able to amb with no AD in hallways and has not had any balance or safety issues. Staff feels she is at her baseline and is for discharge this afternoon. No Physical Therapy indicated at this time screen only. Thank You Rober Condon PT
--- NOTE | 2019-07-16 11:27 | NUR ---
NURSE TO NURSE GIVEN TO [facility] AT THIS TIME.
--- NOTE | 2019-07-16 11:35 | NUR ---
Discharge Paperwork Faxed to [facility] Attn: Amy.
--- NOTE | 2019-07-16 11:36 | NUR ---
AM GROUP PT DID NOT ATTEND MORNING GROUP THERAPY. PT IS READYING TO BE DISCHARGED FROM THE UNIT THIS AFTERNOON
--- NOTE | 2019-07-16 12:08 | NUR ---
Shift chart check completed.
--- NOTE | 2019-07-16 12:17 | NUR ---
PATIENT C/O UPSET STOMACH. REQUESTING AND RECEIVED MAALOX PER PRN ORDER. WILL MONITOR FOR EFFECTIVENESS.
--- NOTE | 2019-07-16 13:16 | NUR ---
PATIENT STATES THAT MAALOX SLIGHTLY EFFECTIVE.
--- NOTE | 2019-07-16 14:15 | NUR ---
PATIENT OFF THE FLOOR AT THIS TIME VIA STRETCHER, ESCORTED BY AMBULANCE SERVICE AND SECURITY. BELONGINGS AND DISCHARGE PACKET GIVEN TO AMBULANCE SERVICE. PT ALERT AND ORIENTED X3, NO S/S OF DISTRESS NOTED, RESPS EVEN AND UNLABORED ON ROOM AIR.
--- NOTE | 2019-07-16 15:00 | NUR ---
Met with pt prior to discharge. Provided information about guardianship for estate as pt stated she was considering this. Discussed guardianship of person and DPOA-HC. Pt is not willing at this time to complete a DPOA-HC. Discussed pt's return to [facility]. Reivewed with pt the status of her Social Security and that [facility] has applied to be the payee for pt's SS. Pt admitted to feeling anxious about her return to the . Empathized with pt and discussed this further. Pt asked that this typewriter tester contact [facility] and request that pt see a counselor there. After meeting with pt, phoned [facility] and spoke to Liza MCCALLUM. Liza stated that she will place pt on the [facility] list, the provider for resident counseling. Met with pt again and informed her of this. Spoke with pt's son Will and informed him of pt returning to [place] and that pt declined naming a DPOA-HC.
--- NOTE | 2019-07-16 15:06 | NUR ---
Patient discharged today to [facility] where she is a long-term resident. Follow-up will be with Dr Yariel Ramires, visiting psychiatrist. While at [facility], pt's paranoia cleared and her mood improved. Pt denied suicidal ideations prior to discharge. Pt requested that this auto service writer not speak to her family until 2 days before discharge. A family meeting was held with pt's son Will by phone. Pt would at times isolate but did participate in some of the programming. Pt was pleasant and cooperative at time of discharge.
== END 2019-07-16 14:16 | DRG 885 ==
LOC: 3N 06:28
PROVIDERS: Family Medicine; ADMIT Psychiatry & Neurology Psychiatry
DX: F33.3 Major depressive disorder, recurrent, severe with psychotic symptoms (principal); G62.9 Polyneuropathy, unspecified; F41.9 Anxiety disorder, unspecified; R05 Cough; R51 Headache; I50.9 Heart failure, unspecified; J44.9 Chronic obstructive pulmonary disease, unspecified; I11.0 Hypertensive heart disease with heart failure; I48.20 Chronic atrial fibrillation, unspecified; K21.9 Gastro-esophageal reflux disease without esophagitis; R13.10 Dysphagia, unspecified; F03.90 Unspecified dementia, unspecified severity, without behavioral disturbance, psychotic disturbance, mood disturbance, and anxiety; F17.210 Nicotine dependence, cigarettes, uncomplicated; N39.41 Urge incontinence; D50.9 Iron deficiency anemia, unspecified; E55.9 Vitamin D deficiency, unspecified; K58.9 Irritable bowel syndrome, unspecified; N32.81 Overactive bladder; G25.81 Restless legs syndrome; Z96.653 Presence of artificial knee joint, bilateral; E89.0 Postprocedural hypothyroidism; M10.9 Gout, unspecified; G47.00 Insomnia, unspecified; M15.9 Polyosteoarthritis, unspecified; E78.5 Hyperlipidemia, unspecified; J30.2 Other seasonal allergic rhinitis; G47.31 Primary central sleep apnea; Z71.6 Tobacco abuse counseling; Z82.49 Family history of ischemic heart disease and other diseases of the circulatory system; Z82.3 Family history of stroke; Z80.6 Family history of leukemia; Z88.0 Allergy status to penicillin; Z88.8 Allergy status to other drugs, medicaments and biological substances; Z88.1 Allergy status to other antibiotic agents; Z91.041 Radiographic dye allergy status; Z79.899 Other long term (current) drug therapy; Z86.73 Personal history of transient ischemic attack (TIA), and cerebral infarction without residual deficits; Z85.850 Personal history of malignant neoplasm of thyroid; Z90.49 Acquired absence of other specified parts of digestive tract; Z90.710 Acquired absence of both cervix and uterus